=== PATIENT | female | born 1955 | race Two or more races ===

== ENCOUNTER 2019-10-11 18:59 | Inpatient (IN) | payer MEDICARE, OTHER ==
[~2019-10-11] VITALS: Ht 165.1 cm; Wt 75.3 kg
--- NOTE | 2019-10-11 19:45 | Emergency Room Report ---
History of Present Illness General Chief Complaint: Chest Pain Source: Patient Present Illness HPI Patient presents with complaints of midsternal chest pain Initially reports off-and-on for the past 7 to 10 days however more recently over the past 2 days has been having more frequent pain also has sensation of palpitation with this denies any focal weakness denies any back or flank pain Denies any pleurisy Patient also reports right-sided forehead Sharp shooting pain denies any pain at this time however Denies any change with position or exertion for the chest pain Allergies: Coded Allergies: No Known Allergies (Unverified , 10/11/19) Patient History Past Medical History: see triage record Reviewed Nursing Documentation: PMH: Agreed; PSxH: Agreed Nursing Documentation-PMH Past Medical History: No Stated History Hx Asthma: Yes Hx Cancer: Yes - BREAST CA (R) Review of Systems All Other Systems: negative except mentioned in HPI Physical Exam Vital Signs Date Time Temp Pulse Resp B/P (MAP) Pulse Ox O2 Delivery O2 Flow Rate FiO2 10/11/19 19:18 98.1 75 18 131/84 (100) 95 Room Air Sp02 EP Interpretation: reviewed, normal General Appearance: well appearing, no apparent distress Head: normocephalic, atraumatic Eyes: bilateral eye PERRL, bilateral eye EOMI ENT: hearing grossly normal, normal pharynx, TMs + canals normal, uvula midline Neck: full range of motion, supple, no meningismus, no bony tend Respiratory: lungs clear, normal breath sounds, no rhonchi, no respiratory distress, no retraction, no accessory muscle use Cardiovascular #1: normal peripheral pulses, regular rate, rhythm, no edema, no gallop, no JVD, no murmur Gastrointestinal: normal bowel sounds, non tender, soft, no mass, no organomegaly, non-distended, no guarding, no hernia, no pulsatile mass, no rebound Genitourinary: no CVA tenderness Musculoskeletal: normal inspection Neurologic: motor strength/tone normal, etl consultant III-XII nml as tested, oriented x3 , sensory intact, responsive Psychiatric: mood/affect normal Skin: no rash Lymphatic: normal inspection, no adenopathy Medical Decision Making Diagnostic Impression: Primary Impression: ACS (acute coronary syndrome) ER Course Patient is a fairly complex patient with multiple differential to consideration including but not limited to cardiac cardiopulmonary and vascular emergencies Patient EKG is appropriate initial baseline blood work appropriate given the patient's age comorbidities and the description of pain patient was admitted for further inpatient care Labs Test 10/11/19 20:15 10/12/19 07:35 10/12/19 17:40 White Blood Count 6.7 K/UL (4.8-10.8) 6.2 K/UL (4.8-10.8) Red Blood Count 4.84 M/UL (4.20-5.40) 4.40 M/UL (4.20-5.40) Hemoglobin 14.4 G/DL (12.0-16.0) 13.1 G/DL (12.0-16.0) Hematocrit 41.0 % (37.0-47.0) 38.5 % (37.0-47.0) Mean Corpuscular Volume 85 FL (80-99) 88 FL (80-99) Mean Corpuscular Hemoglobin 29.7 PG (27.0-31.0) 29.8 PG (27.0-31.0) Mean Corpuscular Hemoglobin Concent 35.0 G/DL (32.0-36.0) 34.0 G/DL (32.0-36.0) Red Cell Distribution Width 10.1 % (11.6-14.8) 11.2 % (11.6-14.8) Platelet Count 235 K/UL (150-450) 219 K/UL (150-450) Mean Platelet Volume 6.2 FL (6.5-10.1) 6.2 FL (6.5-10.1) Neutrophils (%) (Auto) 67.8 % (45.0-75.0) 63.8 % (45.0-75.0) Lymphocytes (%) (Auto) 23.8 % (20.0-45.0) 25.7 % (20.0-45.0) Monocytes (%) (Auto) 7.5 % (1.0-10.0) 9.1 % (1.0-10.0) Eosinophils (%) (Auto) 0.2 % (0.0-3.0) 0.9 % (0.0-3.0) Basophils (%) (Auto) 0.6 % (0.0-2.0) 0.5 % (0.0-2.0) Sodium Level 142 MMOL/L (136-145) Potassium Level 4.1 MMOL/L (3.5-5.1) Chloride Level 106 MMOL/L (98-107) Carbon Dioxide Level 26 MMOL/L (21-32) Anion Gap 10 mmol/L (5-15) Blood Urea Nitrogen 33 mg/dL (7-18) Creatinine 1.0 MG/DL (0.55-1.30) Estimat Glomerular Filtration Rate 55.5 mL/min (>60) Glucose Level 114 MG/DL (74-106) Calcium Level 8.7 MG/DL (8.5-10.1) Total Bilirubin 0.3 MG/DL (0.2-1.0) Aspartate Amino Transf (AST/SGOT) 14 U/L (15-37) Alanine Aminotransferase (ALT/SGPT) 24 U/L (12-78) Alkaline Phosphatase 83 U/L (46-116) Troponin I 0.006 ng/mL (0.000-0.056) 0.006 ng/mL (0.000-0.056) 0.000 ng/mL (0.000-0.056) Pro-B-Type Natriuretic Peptide 102 pg/mL (0-125) 70 pg/mL (0-125) Total Protein 6.4 G/DL (6.4-8.2) Albumin 3.6 G/DL (3.4-5.0) Globulin 2.8 g/dL Albumin/Globulin Ratio 1.3 (1.0-2.7) Lipase 185 U/L (73-393) Hemoglobin A1c 5.6 % (4.3-6.0) Total Creatine Kinase 175 U/L (26-308) Triglycerides Level 72 MG/DL (30-150) Cholesterol Level 177 MG/DL (< 200) LDL Cholesterol 111 mg/dL (<100) HDL Cholesterol 42 MG/DL (40-60) Cholesterol/HDL Ratio 4.2 (3.3-4.4) EKG Diagnostic Results Rate: normal Rhythm: NSR ST Segments: no acute changes Rhythm Strip Diag. Results EP Interpretation: yes Rate: 80 Rhythm: NSR, no PVC's, no ectopy Chest X-Ray Diagnostic Results Chest X-Ray Diagnostic Results : Chest X-Ray Ordered: Yes # of Views/Limited/Complete: 1 View Indication: Chest Pain EP Interpretation: Yes Interpretation: no consolidation, no effusion, no pneumothorax Impression: No acute disease Electronically Signed by: Nica Garduno DO Last Vital Signs Date Time Temp Pulse Resp B/P (MAP) Pulse Ox O2 Delivery O2 Flow Rate FiO2 10/11/19 19:18 98.1 75 18 131/84 (100) 95 Room Air Status: improved Disposition: ADMITTED INPATIENT Condition: Serious Nica Garduno DO Oct 11, 2019 19:45
[2019-10-11 20:18] VITALS: BP 131/84
[2019-10-11] MEDS ORDERED: CRESTOR10 M1 ORAL (20:26)
[2019-10-11] MEDS ORDERED: PROMETRIUM PO (20:26)
[2019-10-11] MEDS ORDERED: IBUPROFEN600 MG ORAL (20:26)
[2019-10-11] MEDS ORDERED: NORCO 5-325 TA1 EACH ORAL (20:26)
[2019-10-11] MEDS ORDERED: VIVELLE-DOT1 EAC3 TD (20:26)
[2019-10-11] MEDS ORDERED: ATIVAN2 MG ORAL (20:26)
[2019-10-11 20:30] LABS: BASOPHILS % (AUTO) 0.6 % (0.0-2.0); EOSINOPHILS % (AUTO) 0.2 % (0.0-3.0); HEMOGLOBIN 14.4 G/DL (12.0-16.0); LYMPHOCYTES % (AUTO) 23.8 % (20.0-45.0); MEAN CORPUSCULAR VOLUME 85 FL (80-99); MONOCYTES % (AUTO) 7.5 % (1.0-10.0); NEUTROPHILS % (AUTO) 67.8 % (45.0-75.0); PLATELET COUNT 235 K/UL (150-450); RED BLOOD COUNT 4.84 M/UL (4.20-5.40); RED CELL DISTRIBUTION WIDTH 10.1 % (11.6-14.8); WHITE BLOOD COUNT 6.7 K/UL (4.8-10.8)
[2019-10-11 20:43] LABS: ANION GAP 10 mmol/L (5-15); BLOOD UREA NITROGEN 33 mg/dL (7-18); CALCIUM 8.7 MG/DL (8.5-10.1); CARBON DIOXIDE 26 MMOL/L (21-32); CHLORIDE 106 MMOL/L (98-107); POTASSIUM 4.1 MMOL/L (3.5-5.1); SODIUM 142 MMOL/L (136-145)
[2019-10-11 20:53] LABS: ALANINE AMINOTRANSFERASE 24 U/L (12-78); ALBUMIN 3.6 G/DL (3.4-5.0); ALBUMIN/GLOBULIN RATIO 1.3 (1.0-2.7); ALKALINE PHOSPHATASE 83 U/L (46-116); ASPARTATE AMINO TRANSFERASE 14 U/L (15-37); BILIRUBIN,TOTAL 0.3 MG/DL (0.2-1.0)
[2019-10-11 22:00] VITALS: BP 145/90
[2019-10-11] MEDS: LORazepam 1mg tab ORAL SCH (23:44)
[2019-10-12] VITALS: BP 138/85
[2019-10-12] MEDS ORDERED: HYDROcodone/Acetamin 10/325 tab ORAL PRN ×2 (00:30→02:45)
[2019-10-12] MEDS ORDERED: HYDROcodone/Acetamin 5/325 tab ORAL PRN (00:30)
[2019-10-12 04:00] VITALS: BP_SYST 101; BP_SYST 130; BP_DIAS 63; BP_DIAS 80
[2019-10-12 08:00] VITALS: BP_SYST 104; BP_SYST 121; BP_DIAS 59; BP_DIAS 66
[2019-10-12 08:45] LABS: BASOPHILS % (AUTO) 0.5 % (0.0-2.0); EOSINOPHILS % (AUTO) 0.9 % (0.0-3.0); HEMATOCRIT 38.5 % (37.0-47.0); HEMOGLOBIN 13.1 G/DL (12.0-16.0); LYMPHOCYTES % (AUTO) 25.7 % (20.0-45.0); MEAN CORPUSCULAR VOLUME 88 FL (80-99); MONOCYTES % (AUTO) 9.1 % (1.0-10.0); NEUTROPHILS % (AUTO) 63.8 % (45.0-75.0); PLATELET COUNT 219 K/UL (150-450); RED CELL DISTRIBUTION WIDTH 11.2 % (11.6-14.8); WHITE BLOOD COUNT 6.2 K/UL (4.8-10.8)
[2019-10-12] MEDS ORDERED: Aspirin Baby 81mg ORAL SCH (09:00)
[2019-10-12 09:33] LABS: CHOLESTEROL 177 MG/DL (< 200); HDL CHOLESTEROL 42 MG/DL (40-60); TRIGLYCERIDES 72 MG/DL (30-150)
[2019-10-12] MEDS: SUMAtriptan 100mg tab ORAL PRN (10:39)
--- NOTE | 2019-10-12 11:11 | Diagnostic Imaging Report ---
Indication: Chest pain Technique: XRAY Chest 1v Comparison: None Findings: Heart size and mediastinal contours are within normal limits for AP technique. There is no focal airspace consolidation, pneumothorax or pleural effusion. Osseous structures demonstrate no acute abnormality. Multiple surgical clips project over the right lower chest. Impression: No radiographic evidence of acute cardiopulmonary disease. Evidence of prior surgery with multiple surgical clips projecting over the right lower chest. Correlation with surgical history recommended.
[2019-10-12 12:00] VITALS: BP 113/66
--- NOTE | 2019-10-12 12:21 | History & Physical ---
History of Present Illness General Date patient seen: Oct 12, 2019 Reason for Hospitalization: Chest Pain Present Illness HPI 64 year old female with history HLD and family history of coronary artery disease presents with intermittent substernal chest pain over the past 2-3 days. Pain occasionally worse with exertion. Some associate headaches and nausea. history of migrain headaches no LE edema No focal weakness feeling generally weak has not been able to care for herself at home Allergies: Coded Allergies: No Known Allergies (Unverified , 10/11/19) Medication History Scheduled Estradiol (Vivelle-Dot), 1 EACH TD TWO TIMES A WEEK, (Reported) Lorazepam* (Ativan*), 4 MG ORAL BEDTIME, (Reported) Rosuvastatin Calcium (Crestor), Unknown Dose ORAL DAILY, (Reported) [Prometrium], 100 MG PO QHS, (Reported) Scheduled PRN Hydrocodone Bit/Acetaminophen 5-325* ([place] 5-325*), 1 TAB ORAL for For Pain, ( Reported) Ibuprofen* (Motrin*), Unknown Dose ORAL for TEDDY, (Reported) Patient History Healthcare decision maker Resuscitation status Advanced Directive on File Review of Systems Review of Symptoms General ROS: no weight loss or fever Psychological ROS: no depression or mood changes, no memory loss Ophthalmic ROS: no visual changes or eye irritation ENT ROS: no nasal congestion, hearing loss, dizziness Allergy and Immunology ROS: no allergic symptoms or urticaria Hematological and Lymphatic ROS: no swollen glands, unusual bleeding or bruising Endocrine ROS: no polyuria, polydipsia, weight changes, temperature intolerance Respiratory ROS: no cough, shortness of breath, or wheezing Cardiovascular ROS: no chest pain or dyspnea on exertion Gastrointestinal ROS: denies abdominal pain, bright red blood in stool. Musculoskeletal ROS: no myalgias or arthralgias Neurological ROS: no TIA or stroke symptoms Dermatological ROS: no new or changing skin lesions, rashes or pruritis Physical Exam Physical Exam General appearance: alert, cooperative, no distress, appears stated age Head: Normocephalic, without obvious abnormality, atraumatic Eyes: conjunctivae/corneas clear. PERRL, EOM's intact. Fundi benign Throat: Lips, mucosa, and tongue normal. Teeth and gums normal Neck: supple, symmetrical, trachea midline, no adenopathy, thyroid: not enlarged, symmetric, no tenderness/mass/nodules, no carotid bruit and no JVD Lungs: clear to auscultation bilaterally Heart: regular rate and rhythm, S1, S2 normal, no murmur, click, rub or gallop Abdomen: soft, non-tender. Bowel sounds normal. No masses, no organomegaly Extremities: extremities normal, atraumatic, no cyanosis or edema Pulses: 2+ and symmetric Skin: Skin color, texture, turgor normal. No rashes or lesions Neurologic: Grossly normal Last 24 Hour Vital Signs Date Time Temp Pulse Resp B/P (MAP) Pulse Ox O2 Delivery O2 Flow Rate FiO2 10/12/19 08:00 98.1 67 18 121/59 (79) 95 10/12/19 08:00 66 10/12/19 04:00 67 10/12/19 04:00 98.0 60 18 101/63 (76) 98 10/12/19 01:55 Room Air 10/12/19 00:21 Room Air 10/12/19 00:00 97.8 71 18 138/85 (102) 97 10/12/19 00:00 71 10/11/19 22:00 97.7 60 18 145/90 (108) 98 10/11/19 20:45 98.1 67 18 131/84 95 Room Air 10/11/19 20:18 75 18 Room Air 10/11/19 20:18 98.1 67 18 131/84 95 Room Air 10/11/19 19:18 98.1 75 18 131/84 (100) 95 Room Air Intake and Output 10/11/19 10/12/19 18:59 06:59 Intake Total 0 ml Balance 0 ml Intake Oral 0 ml # Voids 3 Laboratory Tests Test 10/11/19 20:15 10/12/19 07:35 White Blood Count 6.7 K/UL (4.8-10.8) 6.2 K/UL (4.8-10.8) Red Blood Count 4.84 M/UL (4.20-5.40) 4.40 M/UL (4.20-5.40) Hemoglobin 14.4 G/DL (12.0-16.0) 13.1 G/DL (12.0-16.0) Hematocrit 41.0 % (37.0-47.0) 38.5 % (37.0-47.0) Mean Corpuscular Volume 85 FL (80-99) 88 FL (80-99) Mean Corpuscular Hemoglobin 29.7 PG (27.0-31.0) 29.8 PG (27.0-31.0) Mean Corpuscular Hemoglobin Concent 35.0 G/DL (32.0-36.0) 34.0 G/DL (32.0-36.0) Red Cell Distribution Width 10.1 % (11.6-14.8) L 11.2 % (11.6-14.8) L Platelet Count 235 K/UL (150-450) 219 K/UL (150-450) Mean Platelet Volume 6.2 FL (6.5-10.1) L 6.2 FL (6.5-10.1) L Neutrophils (%) (Auto) 67.8 % (45.0-75.0) 63.8 % (45.0-75.0) Lymphocytes (%) (Auto) 23.8 % (20.0-45.0) 25.7 % (20.0-45.0) Monocytes (%) (Auto) 7.5 % (1.0-10.0) 9.1 % (1.0-10.0) Eosinophils (%) (Auto) 0.2 % (0.0-3.0) 0.9 % (0.0-3.0) Basophils (%) (Auto) 0.6 % (0.0-2.0) 0.5 % (0.0-2.0) Sodium Level 142 MMOL/L (136-145) Potassium Level 4.1 MMOL/L (3.5-5.1) Chloride Level 106 MMOL/L (98-107) Carbon Dioxide Level 26 MMOL/L (21-32) Anion Gap 10 mmol/L (5-15) Blood Urea Nitrogen 33 mg/dL (7-18) H Creatinine 1.0 MG/DL (0.55-1.30) Estimat Glomerular Filtration Rate 55.5 mL/min (>60) Glucose Level 114 MG/DL (74-106) H Calcium Level 8.7 MG/DL (8.5-10.1) Total Bilirubin 0.3 MG/DL (0.2-1.0) Aspartate Amino Transf (AST/SGOT) 14 U/L (15-37) L Alanine Aminotransferase (ALT/SGPT) 24 U/L (12-78) Alkaline Phosphatase 83 U/L (46-116) Troponin I 0.006 ng/mL (0.000-0.056) 0.006 ng/mL (0.000-0.056) Pro-B-Type Natriuretic Peptide 102 pg/mL (0-125) 70 pg/mL (0-125) Total Protein 6.4 G/DL (6.4-8.2) Albumin 3.6 G/DL (3.4-5.0) Globulin 2.8 g/dL Albumin/Globulin Ratio 1.3 (1.0-2.7) Lipase 185 U/L (73-393) Triglycerides Level 72 MG/DL (30-150) Cholesterol Level 177 MG/DL (< 200) LDL Cholesterol 111 mg/dL (<100) H HDL Cholesterol 42 MG/DL (40-60) Cholesterol/HDL Ratio 4.2 (3.3-4.4) Height (Feet): 5 Height (Inches): 5.00 Weight (Pounds): 166 Medications Current Medications Medications (Trade) Dose Ordered Sig/Brianda Route PRN Reason Start Time Stop Time Status Last Admin Dose Admin Acetaminophen (Tylenol) 650 mg Q6H PRN ORAL Mild Pain/Temp > 100.5 10/12/19 00:30 11/11/19 00:29 Acetaminophen/ Hydrocodone Bitart ([place] 10/325) 1 tab Q6H PRN ORAL Severe Pain (Pain Scale 7-10) 10/12/19 02:45 10/19/19 02:44 Acetaminophen/ Hydrocodone Bitart ([place] 5/325) 1 tab Q6H PRN ORAL Moderate Pain (Pain Scale 4-6) 10/12/19 00:30 10/19/19 00:29 Aspirin (ASA) 81 mg DAILY ORAL 10/12/19 09:00 11/11/19 08:59 10/12/19 08:47 Atorvastatin Calcium (Lipitor) 80 mg BEDTIME ORAL 10/12/19 21:00 11/11/19 20:59 Lorazepam (Ativan) 4 mg BEDTIME ORAL 10/11/19 23:00 10/18/19 22:59 10/11/19 23:44 Sumatriptan Succinate (Imitrex) 100 mg DAILY PRN ORAL For Pain 10/12/19 10:15 11/11/19 10:14 10/12/19 10:39 Assessment/Plan Status: stable Diagnosis [place] I: #Chest pain r/o ACS #HLD #anxiety disorder #failrue to thrive #migraine headaches - Admit inpatient - tele - 2d echo - aspirin 81 - lipitor 80 - cardiology eval - monitor labs - lipid panel - a1c - imitrext for headaches MIPS Hospital declaration INPATIENT level of care is warranted for this patient because patient is a 89 year old with who presents with suspicion of . I have a high level of concern because . Patient is at high risk for . Plan of care/treatment include . Patient care is expected to be greater than 2 midnights. OBSERVATION level of care is warranted for this patient. Patient is a 89 year old with who presents with . Patient will be admitted for 1 midnight, but if additional night(s) is/are necessary, patient will be converted to inpatient status for the entire hospitalization Disposition: Once the patient is stable to leave the hospital, I anticipate the patient will likely be discharged to the following environment: Estimated discharge date: I spent 70 minutes on this patient's case, and minutes was dedicated to counseling and/or care coordination. MIPS (Merit-based Incentive Payment System) Applicable CPT: 46764, 66833 CHECK ALL THAT ARE MET: Measure #5 (CHF): All ages. Prescribe JOHANA/ARB upon discharge for patients with left ventricular systolic dysfunction. If not, the reason is clearly documented in the medical chart. Measure #8 (CHF): All ages. Prescribe a beta colin upon discharge for patients with left ventricular systolic dysfunction. If not, the reason is clearly documented in the medical chart. Measure #47 Advance care plan or surrogate decision maker documented in the medical record. Measure #130 The provider has documented, updated, or reviewed the patients current medication list and has documented it in the patients note. Measure #374 (All): Send report to referring provider. Measure #407(Sepsis due to MSSA bacteremia): Age 18+ Patient treated with a beta-lactam antibiotic (Nafcillin, Oxacillin or Cefazolin) as definitive therapy. MEDICAL COMPLEXITY High complexity medical decision making (need 2/3 categories) Problem - need 4 points Acute/new problem with new plan for workup (4 points, 1 max) Acute/new problem without additional workup (3 points, 1 max) Unstable chronic problem actively being managed (2 point each, 2 max) Stable chronic problem actively being managed (1 point each, 2 max) Self-limited/transient process (constipation, muscle ache, etc) (1 point each , 2 max) Data - need 4 points Reviewed labs/imaging studies (1 points, 2 max) Independent review of imaging (EKG, xrays, etc) (2 points, 2 max) Discussed case with consult/other MD/RN (2 points, 2 max) High Risk - qualify if have one of the following: Severe exacerbation of acute problem, acute mental status change, IV narcotics , monitoring drug levels (vancomycin, INR, tacrolimus etc) Angie Kirkland M.D. Oct 12, 2019 12:20
--- NOTE | 2019-10-12 12:39 | Cardiology Report ---
APPROVED REPORT EKG Measurement Heart [id number] CT 116P [id number] Normal sinus rhythm Normal ECG
[2019-10-12 12:45] LABS: CREATINE KINASE 175 U/L (26-308)
--- NOTE | 2019-10-12 13:30 | Cardiology Report ---
APPROVED REPORT EXAM: Two-dimensional and M-mode echocardiogram with Doppler and color Doppler. INDICATION Chest Pain M-Mode DIMENSIONS IVSd1.0 (0.7-1.1cm)Left Atrium (MM)2.9 (1.6-4.0cm) LVDd4.4 (3.5-5.6cm)Aortic Root3.1 (2.0-3.7cm) PWd1.0 (0.7-1.1cm)Aortic Cusp Exc.1.5 (1.5-2.0cm) IVSs1.6 cm LVDs3.4 (2.5-4.0cm) PWs1.6 cm Normal left ventricular chamber size, systolic function and wall motion. Left ventricular ejection fraction estimated to be 60-65 %. Mild left ventricular hypertrophy by 2-D. No evidence of pericardial effusion. All other cardiac chamber sizes are within normal limits. Focal aortic valve sclerosis with adequate cusp excursion. Thickened mitral valve leaflets with normal excursion. Mitral annulus and aortic root calcification. Normal pulmonic valve structure. Normal tricuspid valve structure. IVC at normal size with physiologic collapse. A color flow and spectral Doppler study was performed and revealed: No aortic regurgitation.. Trace mitral regurgitation. Mitral diastolic velocities suggest reduced left ventricular relaxation c/w mild LV diastolic dysfunction (Grade I ). Mild tricuspid regurgitation. Tricuspid systolic velocities suggests peak right ventricular systolic pressure of 28 mmHg.
[2019-10-12] MEDS ORDERED: Aspirin EC 81mg tab ORAL SCH (14:00)
[2019-10-12 16:00] VITALS: BP 136/93
[2019-10-12 20:00] VITALS: BP 128/91
[2019-10-12] MEDS: Atorvastatin 80mg tab ORAL SCH (20:44)
[2019-10-12] MEDS ORDERED: Atorvastatin 80mg tab ORAL SCH (21:00)
[2019-10-12] MEDS: LORazepam 1mg tab ORAL SCH (21:44)
[2019-10-13] VITALS: BP 138/85
[2019-10-13 07:54] LABS: BASOPHILS % (AUTO) 0.7 % (0.0-2.0); EOSINOPHILS % (AUTO) 1.3 % (0.0-3.0); HEMATOCRIT 39.4 % (37.0-47.0); HEMOGLOBIN 13.4 G/DL (12.0-16.0); LYMPHOCYTES % (AUTO) 30.9 % (20.0-45.0); MEAN CORPUSCULAR VOLUME 88 FL (80-99); MONOCYTES % (AUTO) 8.2 % (1.0-10.0); NEUTROPHILS % (AUTO) 58.8 % (45.0-75.0); PLATELET COUNT 218 K/UL (150-450); RED BLOOD COUNT 4.46 M/UL (4.20-5.40); RED CELL DISTRIBUTION WIDTH 11.3 % (11.6-14.8)
[2019-10-13 08:00] VITALS: BP 97/61
[2019-10-13] MEDS: Aspirin EC 81mg tab ORAL SCH (09:59)
[2019-10-13 12:00] VITALS: BP 103/61
--- NOTE | 2019-10-13 15:18 | Internal Med Progress Note ---
Subjective Physician Name Angie Kirkland Attending Physician Angie Kirkland M.D. Current Medications Medications (Trade) Dose Ordered Sig/Brianda Route PRN Reason Start Time Stop Time Status Last Admin Dose Admin Acetaminophen (Tylenol) 650 mg Q6H PRN ORAL Mild Pain/Temp > 100.5 10/12/19 00:30 11/11/19 00:29 Acetaminophen/ Hydrocodone Bitart ([place] 10/325) 1 tab Q6H PRN ORAL Severe Pain (Pain Scale 7-10) 10/12/19 02:45 10/19/19 02:44 10/13/19 12:44 Acetaminophen/ Hydrocodone Bitart ([place] 5/325) 1 tab Q6H PRN ORAL Moderate Pain (Pain Scale 4-6) 10/12/19 00:30 10/19/19 00:29 Aspirin (Ecotrin) 81 mg DAILY ORAL 10/13/19 09:00 11/12/19 08:59 10/13/19 09:59 Atorvastatin Calcium (Lipitor) 80 mg BEDTIME ORAL 10/12/19 21:00 11/11/19 20:59 10/12/19 20:44 Escitalopram Oxalate (Lexapro) 10 mg Q24H ORAL 10/12/19 21:00 11/11/19 20:59 10/12/19 20:44 Lorazepam (Ativan) 4 mg BEDTIME ORAL 10/11/19 23:00 10/18/19 22:59 10/12/19 21:44 Sumatriptan Succinate (Imitrex) 100 mg DAILY PRN ORAL For Pain 10/12/19 10:15 11/11/19 10:14 10/12/19 10:39 Allergies: Coded Allergies: No Known Allergies (Unverified , 10/11/19) All Systems: reviewed and negative except above Subjective notes some chest palpitations + bilateral hip pain and low back pain eating ok Objective Last Vital Signs Date Time Temp Pulse Resp B/P (MAP) Pulse Ox O2 Delivery O2 Flow Rate FiO2 10/13/19 12:00 97.9 74 16 103/61 (75) 93 10/13/19 09:00 Room Air General Appearance: WD/WN, no apparent distress EENT: PERRL/EOMI, normal ENT inspection, scleral icterus Cardiovascular: normal peripheral pulses, normal rate, regular rhythm, JVD Laboratory Tests Test 10/12/19 17:40 10/12/19 23:45 10/13/19 06:40 Troponin I 0.000 ng/mL (0.000-0.056) 0.010 ng/mL (0.000-0.056) 0.000 ng/mL (0.000-0.056) White Blood Count 6.0 K/UL (4.8-10.8) Red Blood Count 4.46 M/UL (4.20-5.40) Hemoglobin 13.4 G/DL (12.0-16.0) Hematocrit 39.4 % (37.0-47.0) Mean Corpuscular Volume 88 FL (80-99) Mean Corpuscular Hemoglobin 29.9 PG (27.0-31.0) Mean Corpuscular Hemoglobin Concent 33.9 G/DL (32.0-36.0) Red Cell Distribution Width 11.3 % (11.6-14.8) L Platelet Count 218 K/UL (150-450) Mean Platelet Volume 6.3 FL (6.5-10.1) L Neutrophils (%) (Auto) 58.8 % (45.0-75.0) Lymphocytes (%) (Auto) 30.9 % (20.0-45.0) Monocytes (%) (Auto) 8.2 % (1.0-10.0) Eosinophils (%) (Auto) 1.3 % (0.0-3.0) Basophils (%) (Auto) 0.7 % (0.0-2.0) Pro-B-Type Natriuretic Peptide 74 pg/mL (0-125) Intake and Output 10/12/19 10/13/19 18:59 06:59 Intake Total 740 ml 900 ml Balance 740 ml 900 ml Intake Oral 740 ml 900 ml # Voids 3 4 Assessment/Plan Status: stable Assessment/Plan #Chest pain r/o ACS #HLD #anxiety disorder #failrue to thrive #migraine headaches - tele - 2d echo - aspirin 81 - lipitor 80 - cardiology eval - monitor labs - lipid panel pending - a1c noted - imitrext for headaches - resume Angie Johnston M.D. Oct 13, 2019 15:18
[2019-10-13 16:00] VITALS: BP 99/63
--- NOTE | 2019-10-13 16:48 | Cardiology Progress Note ---
Assessment/Plan Status: stable Assessment/Plan Assessment #Chest pain r/o ACS #HLD #anxiety disorder #failrue to thrive #migraine headaches Plan 2D echocardiogram Lexiscan stress test Aspirin Statin IV fluids nitro prn chest pain Subjective Cardiovascular: Reports: no symptoms Respiratory: Reports: no symptoms Gastrointestinal/Abdominal: Reports: no symptoms Genitourinary: Reports: no symptoms Subjective 64 year old female with history HLD and family history of coronary artery disease presents with intermittent substernal chest pain over the past 2-3 days. Pain occasionally worse with exertion She has hx of CAD. Patient admitted for stress testing. Objective Last 24 Hour Vital Signs Date Time Temp Pulse Resp B/P (MAP) Pulse Ox O2 Delivery O2 Flow Rate FiO2 10/13/19 12:00 97.9 74 16 103/61 (75) 93 10/13/19 12:00 76 10/13/19 09:00 Room Air 10/13/19 08:00 59 10/13/19 08:00 97.9 53 18 97/61 (73) 91 10/13/19 03:43 60 10/13/19 00:00 97.7 66 18 138/85 (102) 94 10/13/19 00:00 65 10/12/19 21:00 Room Air 10/12/19 20:35 69 10/12/19 20:00 98.2 67 20 128/91 (103) 95 General Appearance: no apparent distress, alert EENT: PERRL/EOMI, normal ENT inspection, TMs normal, pharynx normal Neck: non-tender, normal alignment, supple, normal inspection, no JVD Rhythm: NSR Cardiovascular: normal peripheral pulses, normal rate, regular rhythm Respiratory/Chest: chest wall non-tender, lungs clear, normal breath sounds Abdomen: normal bowel sounds, non tender, soft, no organomegaly, no mass Extremities: normal range of motion, non-tender, normal inspection, no calf tenderness, no swelling Neurologic: senior it auditor II-XII grossly normal, no motor/sensory deficits Intake and Output 10/12/19 10/13/19 18:59 06:59 Intake Total 740 ml 900 ml Balance 740 ml 900 ml Intake Oral 740 ml 900 ml # Voids 3 4 Laboratory Tests Test 10/12/19 17:40 10/12/19 23:45 10/13/19 06:40 Troponin I 0.000 ng/mL (0.000-0.056) 0.010 ng/mL (0.000-0.056) 0.000 ng/mL (0.000-0.056) White Blood Count 6.0 K/UL (4.8-10.8) Red Blood Count 4.46 M/UL (4.20-5.40) Hemoglobin 13.4 G/DL (12.0-16.0) Hematocrit 39.4 % (37.0-47.0) Mean Corpuscular Volume 88 FL (80-99) Mean Corpuscular Hemoglobin 29.9 PG (27.0-31.0) Mean Corpuscular Hemoglobin Concent 33.9 G/DL (32.0-36.0) Red Cell Distribution Width 11.3 % (11.6-14.8) L Platelet Count 218 K/UL (150-450) Mean Platelet Volume 6.3 FL (6.5-10.1) L Neutrophils (%) (Auto) 58.8 % (45.0-75.0) Lymphocytes (%) (Auto) 30.9 % (20.0-45.0) Monocytes (%) (Auto) 8.2 % (1.0-10.0) Eosinophils (%) (Auto) 1.3 % (0.0-3.0) Basophils (%) (Auto) 0.7 % (0.0-2.0) Pro-B-Type Natriuretic Peptide 74 pg/mL (0-125) Miguel Guo MD Oct 13, 2019 16:48
[2019-10-13] MEDS ORDERED: Lexiscan 0.4mg/5ml syringe IV PRN (17:00)
[2019-10-13 20:00] VITALS: BP 125/77
[2019-10-13] MEDS: Atorvastatin 80mg tab ORAL SCH (21:06)
[2019-10-13] MEDS: LORazepam 1mg tab ORAL SCH (21:06)
[2019-10-14] VITALS: BP 124/84
[2019-10-14 08:00] VITALS: BP 99/65
[2019-10-14] MEDS: Aspirin EC 81mg tab ORAL SCH (08:27)
[2019-10-14 08:56] LABS: BASOPHILS % (AUTO) 0.7 % (0.0-2.0); EOSINOPHILS % (AUTO) 1.3 % (0.0-3.0); HEMOGLOBIN 13.3 G/DL (12.0-16.0); MEAN CORPUSCULAR VOLUME 88 FL (80-99); MONOCYTES % (AUTO) 9.3 % (1.0-10.0); NEUTROPHILS % (AUTO) 50.6 % (45.0-75.0); PLATELET COUNT 215 K/UL (150-450); RED BLOOD COUNT 4.52 M/UL (4.20-5.40); RED CELL DISTRIBUTION WIDTH 11.1 % (11.6-14.8); WHITE BLOOD COUNT 5.9 K/UL (4.8-10.8)
[2019-10-14 12:00] VITALS: BP 117/73
[2019-10-14 16:00] VITALS: BP 109/70
--- NOTE | 2019-10-14 19:24 | Nephrology Progress Note ---
Assessment/Plan Plan #Chest pain r/o ACS #HLD #anxiety disorder #failrue to thrive #migraine headaches #history of bilateral hip surgeries - tele - 2d echo noted - aspirin 81 - lipitor 80 - cardiology eval - monitor labs - lipid panel - a1c noted - imitrext for headaches - resume lexapro - pain control for hip pain Subjective Constitutional: Reports: no symptoms HEENT: Reports: no symptoms Genitourinary: Reports: no symptoms Neurologic/Psychiatric: Reports: no symptoms Subjective Feeling ok no further episodes of chest pain complains of bilateral hip pain Objective Objective Last 24 Hour Vital Signs Date Time Temp Pulse Resp B/P (MAP) Pulse Ox O2 Delivery O2 Flow Rate FiO2 10/14/19 16:00 71 10/14/19 16:00 98.2 71 18 109/70 (83) 95 10/14/19 12:00 73 10/14/19 12:00 98.1 62 18 117/73 (88) 96 10/14/19 09:00 Room Air 10/14/19 08:00 58 10/14/19 08:00 97.5 56 18 99/65 (76) 95 10/14/19 04:00 55 10/14/19 00:00 63 10/14/19 00:00 97.9 68 24 124/84 (97) 96 10/13/19 21:00 Room Air 10/13/19 20:00 73 10/13/19 20:00 98.1 72 20 125/77 (93) 94 Intake and Output 10/13/19 10/14/19 18:59 06:59 Intake Total 800 ml Balance 800 ml Intake Oral 800 ml # Voids 5 # Bowel Movements 1 Laboratory Tests 10/14/19 08:00: White Blood Count 5.9, Red Blood Count 4.52, Hemoglobin 13.3, Hematocrit 40.0, Mean Corpuscular Volume 88, Mean Corpuscular Hemoglobin 29.4, Mean Corpuscular Hemoglobin Concent 33.2, Red Cell Distribution Width 11.1L, Platelet Count 215, Mean Platelet Volume 6.4L, Neutrophils (%) (Auto) 50.6, Lymphocytes (%) (Auto) 38.0, Monocytes (%) (Auto) 9.3, Eosinophils (%) (Auto) 1.3, Basophils (%) (Auto ) 0.7, Pro-B-Type Natriuretic Peptide 58 Height (Feet): 5 Height (Inches): 5.00 Weight (Pounds): 166 General Appearance: WD/WN, no apparent distress EENT: PERRL/EOMI Neck: non-tender, normal alignment Cardiovascular: normal peripheral pulses, normal rate Respiratory/Chest: chest wall non-tender, lungs clear Abdomen: normal bowel sounds, non tender Neurologic: alert, oriented x 3, responsive, normal mood/affect Angie Kirkland M.D. Oct 14, 2019 19:24
[2019-10-14 20:00] VITALS: BP 135/84
[2019-10-14] MEDS: SUMAtriptan 100mg tab ORAL PRN (20:17)
[2019-10-14] MEDS: Atorvastatin 80mg tab ORAL SCH (21:07)
[2019-10-14] MEDS: LORazepam 1mg tab ORAL SCH (21:07)
[2019-10-14 21:27] VITALS: BP 134/84
[2019-10-15] VITALS: BP 129/60
[2019-10-15 04:00] VITALS: BP 129/64
[2019-10-15 08:00] VITALS: BP 122/75
[2019-10-15 08:11] LABS: BASOPHILS % (AUTO) 0.6 % (0.0-2.0); EOSINOPHILS % (AUTO) 0.9 % (0.0-3.0); HEMATOCRIT 40.6 % (37.0-47.0); HEMOGLOBIN 13.9 G/DL (12.0-16.0); LYMPHOCYTES % (AUTO) 28.1 % (20.0-45.0); MEAN CORPUSCULAR VOLUME 88 FL (80-99); MONOCYTES % (AUTO) 7.6 % (1.0-10.0); NEUTROPHILS % (AUTO) 62.8 % (45.0-75.0); PLATELET COUNT 220 K/UL (150-450); RED BLOOD COUNT 4.61 M/UL (4.20-5.40); RED CELL DISTRIBUTION WIDTH 11.2 % (11.6-14.8)
[2019-10-15 08:42] LABS: ANION GAP 11 mmol/L (5-15); BLOOD UREA NITROGEN 28 mg/dL (7-18); CALCIUM 8.5 MG/DL (8.5-10.1); CARBON DIOXIDE 23 MMOL/L (21-32); CHLORIDE 106 MMOL/L (98-107); CHOLESTEROL 207 MG/DL (< 200); HDL CHOLESTEROL 51 MG/DL (40-60); POTASSIUM 4.3 MMOL/L (3.5-5.1); SODIUM 140 MMOL/L (136-145); TRIGLYCERIDES 68 MG/DL (30-150)
[2019-10-15] MEDS: Aspirin EC 81mg tab ORAL SCH (09:39)
[2019-10-15 12:00] VITALS: BP 115/76
--- NOTE | 2019-10-15 13:01 | Internal Med Progress Note ---
Subjective Physician Name Angie Kirkland Attending Physician Angie Kirkland M.D. Current Medications Medications (Trade) Dose Ordered Sig/Brianda Route PRN Reason Start Time Stop Time Status Last Admin Dose Admin Acetaminophen (Tylenol) 650 mg Q6H PRN ORAL Mild Pain/Temp > 100.5 10/12/19 00:30 11/11/19 00:29 Acetaminophen/ Hydrocodone Bitart ([place] 10/325) 1 tab Q6H PRN ORAL Severe Pain (Pain Scale 7-10) 10/12/19 02:45 10/19/19 02:44 10/13/19 12:44 Acetaminophen/ Hydrocodone Bitart ([place] 5/325) 1 tab Q6H PRN ORAL Moderate Pain (Pain Scale 4-6) 10/12/19 00:30 10/19/19 00:29 Aspirin (Ecotrin) 81 mg DAILY ORAL 10/13/19 09:00 11/12/19 08:59 10/15/19 09:39 Atorvastatin Calcium (Lipitor) 80 mg BEDTIME ORAL 10/12/19 21:00 11/11/19 20:59 10/14/19 21:07 Escitalopram Oxalate (Lexapro) 10 mg Q24H ORAL 10/12/19 21:00 11/11/19 20:59 10/14/19 21:06 Lorazepam (Ativan) 4 mg BEDTIME ORAL 10/11/19 23:00 10/18/19 22:59 10/14/19 21:07 Regadenoson (Lexiscan) 0.4 mg ONCE PRN IV STRESS 10/13/19 17:00 10/15/19 16:59 Sodium Chloride 1,000 ml @ 75 mls/hr [id number] IV 10/15/19 10:30 11/14/19 10:29 10/15/19 11:06 Sumatriptan Succinate (Imitrex) 100 mg DAILY PRN ORAL For Pain 10/12/19 10:15 11/11/19 10:14 10/14/19 20:17 Allergies: Coded Allergies: No Known Allergies (Unverified , 10/11/19) Subjective + bilateral hip pain and low back pain poor appetite toda asking for IVF Objective Last Vital Signs Date Time Temp Pulse Resp B/P (MAP) Pulse Ox O2 Delivery O2 Flow Rate FiO2 10/15/19 12:00 98.2 71 20 115/76 (89) 97 10/15/19 09:00 Room Air Laboratory Tests Test 10/15/19 07:09 White Blood Count 6.0 K/UL (4.8-10.8) Red Blood Count 4.61 M/UL (4.20-5.40) Hemoglobin 13.9 G/DL (12.0-16.0) Hematocrit 40.6 % (37.0-47.0) Mean Corpuscular Volume 88 FL (80-99) Mean Corpuscular Hemoglobin 30.0 PG (27.0-31.0) Mean Corpuscular Hemoglobin Concent 34.2 G/DL (32.0-36.0) Red Cell Distribution Width 11.2 % (11.6-14.8) L Platelet Count 220 K/UL (150-450) Mean Platelet Volume 6.3 FL (6.5-10.1) L Neutrophils (%) (Auto) 62.8 % (45.0-75.0) Lymphocytes (%) (Auto) 28.1 % (20.0-45.0) Monocytes (%) (Auto) 7.6 % (1.0-10.0) Eosinophils (%) (Auto) 0.9 % (0.0-3.0) Basophils (%) (Auto) 0.6 % (0.0-2.0) Sodium Level 140 MMOL/L (136-145) Potassium Level 4.3 MMOL/L (3.5-5.1) Chloride Level 106 MMOL/L (98-107) Carbon Dioxide Level 23 MMOL/L (21-32) Anion Gap 11 mmol/L (5-15) Blood Urea Nitrogen 28 mg/dL (7-18) H Creatinine 1.0 MG/DL (0.55-1.30) Estimat Glomerular Filtration Rate 55.5 mL/min (>60) Glucose Level 95 MG/DL (74-106) Calcium Level 8.5 MG/DL (8.5-10.1) Pro-B-Type Natriuretic Peptide 53 pg/mL (0-125) Triglycerides Level 68 MG/DL (30-150) Cholesterol Level 207 MG/DL (< 200) H LDL Cholesterol 132 mg/dL (<100) H HDL Cholesterol 51 MG/DL (40-60) Cholesterol/HDL Ratio 4.1 (3.3-4.4) Intake and Output 10/14/19 10/15/19 19:00 07:00 Intake Total 360 ml 120 ml Balance 360 ml 120 ml Intake Oral 360 ml 120 ml # Voids 3 1 Assessment/Plan Assessment/Plan #Chest pain r/o ACS #HLD #Dyslipidemia #anxiety disorder #failrue to thrive #migraine headaches - tele - 2d echonoted - aspirin 81 - lipitor 80 - cardiology eval - monitor labs - lipid panel pending - a1c noted - imitrext for headaches - resume lexapro - stress test tomorrow Angie Kirkland M.D. Oct 15, 2019 13:01
[2019-10-15] MEDS ORDERED: Miralax 17gm pkt ORAL PRN (15:30)
[2019-10-15 16:00] VITALS: BP 117/76
[2019-10-15 20:00] VITALS: BP 125/83
[2019-10-15] MEDS: Atorvastatin 80mg tab ORAL SCH (21:23)
[2019-10-15] MEDS: LORazepam 1mg tab ORAL SCH (21:24)
[2019-10-16] VITALS: BP 130/82
[2019-10-16 04:00] VITALS: BP 129/66
[2019-10-16] MEDS ORDERED: METHYLPREDNISOLONE 8 MG ORAL SCH ×3 (06:30→16:00)
[2019-10-16 08:00] VITALS: BP_SYST 130; BP_SYST 141; BP_DIAS 80; BP_DIAS 93
[2019-10-16] MEDS: Aspirin EC 81mg tab ORAL SCH (09:29)
[2019-10-16] MEDS ORDERED: methylPREDNISolone 4mg BIDLS ORAL SCH ×3 (11:30→16:30)
[2019-10-16] MEDS ORDERED: Lexiscan 0.4mg/5ml syringe IV PRN (11:45)
[2019-10-16 12:00] VITALS: BP 128/80
--- NOTE | 2019-10-16 14:32 | Diagnostic Imaging Report ---
Indications: 64-year-old female with chest pain Technique: Single day single isotope protocol utilized. Initially, resting images obtained using IV administration 10.5 millicuries 99M technetium Myoview. Subsequently, patient underwent lexiscan stress testing. See cardiology report for details. During Lexiscan infusion, IV administration 30.3 mCi 99 M technetium Myoview. SPECT and planar images obtained. SPECT images gated to 8 phases of the cardiac cycle were also obtained, and reformatted into cine images for evaluation of ejection fraction. Comparison: none Findings: Per cardiology report, patient experienced flushing during infusion. Per cardiology report, resting EKG demonstrates normal sinus rhythm. Presence or absence of EKG changes during infusion is not described. Imaging demonstrates normal poststress perfusion. No fixed nor reversible perfusion defects. Normal cardiac chamber size. Calculated post stress ejection fraction 66%. No focal wall motion abnormality Impression: Nonischemic clinical response to pharmacologic stress, per cardiology report Nonischemic electrocardiographic response to pharmacologic stress, per cardiology report No imaging findings to suggest ischemia, at level of stress achieved. Calculated post stress ejection fraction 66%
[2019-10-16] MEDS ORDERED: ATIVAN2 MG/1 ML IV (15:50)
[2019-10-16] MEDS ORDERED: LEXAPRO10 MG ORAL (15:50)
[2019-10-16] MEDS ORDERED: ATIVAN1 MG ORAL (15:50)
[2019-10-16] MEDS ORDERED: MEDROL DOSEPAK4 MG ORAL ×2 (15:56→16:10)
[2019-10-16] MEDS ORDERED: MIRTAZAPINE7.5 MG ORAL (15:57)
[2019-10-16 16:00] VITALS: BP 133/76
--- NOTE | 2019-10-16 16:52 | Diagnostic Imaging Report ---
Indication: Left shoulder pain Technique: 3 views of the left shoulder Comparison: None Findings: No acute fractures. No dislocations. Joint spaces are preserved. Bones are osteoporotic Impression: No acute bony trauma
[2019-10-16] MEDS: Atorvastatin 80mg tab ORAL SCH (20:10)
[2019-10-16] MEDS ORDERED: LORazepam 1mg tab ORAL SCH (21:00)
[2019-10-16] MEDS ORDERED: methylPREDNISolone 8mg QHS ORAL SCH ×2 (21:00)
--- NOTE | 2019-10-16 22:16 | Initial Psychiatric Evaluation ---
Psychiatry Consultation Psychiatry Consultation Chief Complaint: Chest Pain Allergies: Coded Allergies: No Known Allergies (Unverified , 10/11/19) Medication History Scheduled Escitalopram Oxalate* (Lexapro*), 10 MG ORAL DAILY, (Reported) Estradiol (Vivelle-Dot), 1 EACH TD TWO TIMES A WEEK, (Reported) Lorazepam* (Ativan*), 3 MG ORAL BEDTIME, (Reported) Methylprednisolone (Methylprednisolone*), 4 MG ORAL DIRECTED, (Reported) Mirtazapine* (Mirtazapine*), 7.5 MG ORAL BEDTIME, (Reported) Rosuvastatin Calcium (Crestor), Unknown Dose ORAL QHS, (Reported) [Prometrium], 100 MG PO QHS, (Reported) Scheduled PRN Hydrocodone Bit/Acetaminophen 5-325* ([place] 5-325*), 1 TAB ORAL for For Pain, ( Reported) Ibuprofen* (Motrin*), Unknown Dose ORAL for TEDDY, (Reported) Discontinued Medications Lorazepam* (Ativan*), 4 MG ORAL BEDTIME, (Reported) Discontinued Reason: Medication dose changed Lorazepam* (Ativan*), 2 MG IV Q4H, (Reported) Discontinued Reason: discontinued med Methylprednisolone (Methylprednisolone*), 8 MG ORAL HS, (Reported) Discontinued Reason: Medication dose changed Objective Data Height (Feet): 5 Height (Inches): 5.00 Weight (Pounds): 166 Assessment/Plan Diagnosis [place] I: MDD Anxiety Princess Bryson MD Oct 16, 2019 22:16
[2019-10-17] MEDS ORDERED: methylPREDNISolone 4mg QAC ORAL SCH ×2 (06:30)
[2019-10-17] MEDS ORDERED: methylPREDNISolone 4mg BIDLS ORAL SCH (11:30)
[2019-10-18] MEDS ORDERED: methylPREDNISolone 4mg QHS ORAL SCH ×2 (21:00)
--- NOTE | 2019-10-19 07:59 | Discharge Summary ---
Discharge Summary Discharge Summary _ DATE OF ADMISSION: 10/11/2019 DATE OF DISCHARGE: 10/16/2019 DISCHARGED BY: Dr Kirkland REASON FOR ADMISSION: 64 years old female with a history of medical history of hyperlipidemia, family history of coronary artery disease presented for evaluation due to intermittent substernal chest pain over the past 2 to 3 days. Pain reported to be worse with exertion with associated headache and nausea. Troponin was negative , proBNP 102. EKG revealed sinus rhythm no acute ischemic changes. After initial evaluation in emergency department patient was admitted for work- up for chest pain. CONSULTANTS: farm hand dr. Guo psychiatrist [facility] COURSE: Patient admitted to telemetry floor. Nurse Quality consulted. Serial troponin were negative. EKG revealed no acute ischemic changes. Patient was ruled out for acute myocardial infarction. Echocardiogram revealed preserved ejection fraction of 60 to 65% with mild left ventricular hypertrophy. No evidence of pericardial effusion. Right ventricular systolic pressure of 28. Chest x-ray demonstrated no radiographic evidence of acute cardiopulmonary disease. Myocardial perfusion scan test was nonischemic. Calculated poststress ejection fraction 66%. Lipid panel revealed total cholesterol 207 , LDL 132, HDL 61. Patient was on antiplatelet therapy with aspirin and statin. Cardiac low-fat low cholesterol diet provided. Patient was counseled on compliance with diet. Nitroglycerin was on board as needed for chest pain. Chest pain resolved. Patient had a history of bilateral hip surgery. Pain management was addressed as needed. Imitrex was on board as needed for headaches. Psychiatrist followed and diagnosed patient with a major depressive disorder and anxiety disorder. Lexapro resumed. Reality orientation and supportive therapy provided. Patient clinically stabilized and was ready for discharge. FINAL DIAGNOSES: Chest pain Anxiety disorder Hyperlipidemia Migraine headache DISCHARGE MEDICATIONS: See Medication Reconciliation list. DISCHARGE INSTRUCTIONS: Patient was discharged home . Follow up with primary care provider in one week. I have been assigned to dictate discharge summary for this account. I was not involved in the patient's management. Melia John NP Oct 19, 2019 07:59
--- NOTE | 2019-10-19 08:18 | CDS Physician Query ---
Clarification is required for compliance, coding accuracy, and to reflect severity of illness for this patient Dear Miguel Peacock MD Date 10/19/2019 Clay Roaster/CDS' Name Matthew Sandoval 64 year old female with history HLD and family history of coronary artery disease presents with intermittent substernal chest pain over the past 2-3 days. Pain occasionally worse with exertion. Some associate headaches and nausea. Assessment/Plan Assessment #Chest pain r/o ACS #HLD #anxiety disorder #failrue to thrive #migraine headaches Please document the suspected etiology of Chest Pain: [] Aortic dissection [] Acute myocardial infarction [] Acute Coronary Syndrome [] Pericarditis [] Anxiety [] Cancer [] Pneumonia [] Costochondritis [] Pneumothorax [] GERD/Esophagitis [] Pulmonary embolism [] Other: [] Unable to determine Present on Admission: [] Yes [] No [] Clinically Undetermined Physician signature Date Please also document in your Progress Notes and/or Discharge Summary and indicate if the condition was present on admission. MTDD
[2019-10-19] MEDS ORDERED: methylPREDNISolone 4mg after lunch ORAL SCH ×2 (12:30)
== END 2019-10-16 20:20 | DRG 313 ==
LOC: EMR 20:03 → EDBEDREQ 20:21 → 2E 21:06
DX: R07.9 Chest pain, unspecified (principal); G43.909 Migraine, unspecified, not intractable, without status migrainosus; R62.7 Adult failure to thrive; E78.5 Hyperlipidemia, unspecified; F41.9 Anxiety disorder, unspecified
CPT/HCPCS: 36415; 71045; 78452; 80048; 80053; 80061; 82550; 83036; 83690; 83880; 84484; 85025; 93005; 93017; 93306; 99285; J7030